=== PATIENT | male | born 1970 | race Caucasian/White ===

== ENCOUNTER → 2018-07-24 | Outpatient (CLI) | payer OTHER ==
--- NOTE | 2018-07-24 13:29 | KCIC ---
Right lower extremity venous Doppler dated 07/24/2018. No comparison available. Clinical data indication: Knee pain. FINDINGS: Grayscale, color-flow and spectral waveform analysis performed to include the deep venous system of the right lower extremity. There is normal compressibility, phasicity and augmentation of flow throughout. No filling defects are seen. Limited evaluation of the calf veins due to edema. There is a borderline enlarged lymph node at the right groin, nonspecific. IMPRESSION: No evidence of right lower extremity deep vein thrombosis. Electronically signed by: Ricardo Recinos MD (07/24/2018 1:26 PM) [id number]
== END | disposition home or self-care (01) ==
LOC: KCIC US 12:22
PROVIDERS: ATTEND Orthopaedic Surgery
DX: M25.561 Pain in right knee (principal); R59.0 Localized enlarged lymph nodes
CPT/HCPCS: 93971